=== PATIENT | female | born 1950 | race Caucasian/White ===

== ENCOUNTER → 2016-11-08 | Outpatient (CLI) | payer MEDICARE | LOC: RAD 17:25 | DX: J40 Bronchitis, not specified as acute or chronic (principal); R91.8 Other nonspecific abnormal finding of lung field | CPT/HCPCS: 71020 ==

== ENCOUNTER 2016-11-09 13:41 | Emergency (ER) | payer MEDICARE ==
[2016-11-09 14:42] LABS: HEMOGLOBIN 13.6 gm/dl (12.3-15.3); RED BLOOD COUNT 4.63 M/UL (4.00-5.10); WHITE BLOOD COUNT 10.9 K/UL (4.5-11.0)
[2016-11-09 15:05] LABS: BUN/CREATININE RATIO 23 (0-10)
== END 2016-11-09 19:20 | disposition short-term general hospital (02) ==
LOC: ER1 13:41
PROVIDERS: Emergency Medicine
DX: J44.1 Chronic obstructive pulmonary disease with (acute) exacerbation (principal); J40 Bronchitis, not specified as acute or chronic; R91.8 Other nonspecific abnormal finding of lung field
CPT/HCPCS: 36415; 36600; 80053; 82550; 82553; 82803; 83690; 83874; 83880; 84484; 85025; 93005; 94640; 94664; 96374; 96375; 96376; 99285; J1956; J2060; J2930; J7050; Q9963